=== PATIENT | female | born 1975 | race African-American/Black ===

== ENCOUNTER 2021-02-16 08:15 | Observation (INO) ==
[2021-02-16 09:25] LABS: Basophils # 0.1 10*3/uL (0.0-0.2); Basophils % 0.6 % (0.0-0.8); Eosinophils # 0.2 10*3/uL (0.0-0.87); Hemoglobin 12.3 GM/DL (12.0-16.0); Immature Granulocytes % 0.5 %; Immature Granulocytes Absolute 0.04 #; Lymphocytes # 1.4 10*3/uL (1.4-4.0); Lymphocytes % 17.2 % (21.3-54.2); Mean Corpuscular HGB Conc 30.8 GM/DL (32-36); Mean Corpuscular Volume 91.5 FL (87-102); Mean Platelet Volume 10.2 FL (9.6-12.0); Monocytes % 8.5 % (1.7-12.7); Neutrophils % 71.2 % (38.7-73.9); Platelet Count 330 T/CUMM (130-400); Red Blood Count 4.37 MC/CUMM (3.8-5.5); Red Cell Distribution Width 13.2 % (9.3-17.3); White Blood Count 8.4 T/CUMM (4-12)
[2021-02-16 09:38] LABS: Calcium 9.1 MG/DL (8.5-10.1); Osmolality,Calculated 278.3 MOS/KG (273-304); Potassium 3.8 MMOL/L (3.5-5.1)
[2021-02-16] MEDS ORDERED: HYDROmorphone 2 MG/1 ML VIAL ONE (10:29)
[2021-02-16] MEDS ORDERED: ONDANSETRON 4 MG/2 ML VIAL ONE ×2 (10:29→16:27)
[2021-02-16] MEDS ORDERED: HYDROmorphone 2 MG/1 ML VIAL IV STA (10:36)
[2021-02-16] MEDS ORDERED: ONDANSETRON 4 MG/2 ML VIAL IV STA (10:36)
[2021-02-16] MEDS ORDERED: metroNIDAZOLE INJ 500 MG/100 ML PREMIX IV ONE (10:40)
[2021-02-16] MEDS ORDERED: LEVOFLOXACIN INJ 750 MG/150 ML PREMIX IV ONE (10:40)
[2021-02-16] MEDS ORDERED: ACETAMINOPHEN 325 MG TABLET PO PRN (10:42)
[2021-02-16] MEDS ORDERED: BISACODYL 5 MG TABLET PO PRN (10:42)
[2021-02-16] MEDS ORDERED: KETOROLAC 15 MG/1 ML VIAL IV PRN (10:42)
[2021-02-16] MEDS ORDERED: ALBUTEROL/IPRATROPIUM 3 ML NEB RESP TX PRN (10:42)
[2021-02-16] MEDS: metroNIDAZOLE INJ 500 MG/100 ML PREMIX IV SCH ×2 (11:22→19:30)
[2021-02-16] MEDS: LACTATED RINGERS 1,000 ML IV SCH ×2 (11:23→20:31)
[2021-02-16] MEDS: LEVOFLOXACIN INJ 750 MG/150 ML PREMIX IV SCH (11:23)
[2021-02-16] MEDS ORDERED: ONDANSETRON 4 MG/2 ML VIAL IV PRN (12:55)
[2021-02-16] MEDS: HYDROmorphone 2 MG/1 ML VIAL IV PRN ×2 (13:08→16:19)
[2021-02-16] MEDS ORDERED: ONDANSETRON 4 MG/2 ML VIAL IV SCH (14:00)
[2021-02-16] MEDS ORDERED: propofoL 200 MG/20 ML VIAL IV ONE (16:27)
[2021-02-16] MEDS ORDERED: DEXAMETHASONE 4 MG/1 ML VIAL ONE (16:27)
[2021-02-16] MEDS ORDERED: LIDOCAINE 2% 5 ML VIAL ONE (16:27)
[2021-02-16] MEDS ORDERED: fentaNYL 100 MCG/2 ML VIAL ONE (16:27)
[2021-02-16] MEDS ORDERED: LACTATED RINGERS 1,000 ML IV ONE (16:27)
[2021-02-16] MEDS ORDERED: KETOROLAC 30 MG/1 ML VIAL ONE (16:27)
[2021-02-16] MEDS ORDERED: MIDAZOLAM 2 MG/2 ML VIAL ONE (16:28)
[2021-02-16] MEDS: KETOROLAC 30 MG/1 ML VIAL IV PRN (19:44)
[2021-02-17] MEDS: metroNIDAZOLE INJ 500 MG/100 ML PREMIX IV SCH ×2 (02:47→11:41)
[2021-02-17] MEDS: LACTATED RINGERS 1,000 ML IV SCH ×3 (05:47→22:15)
[2021-02-17] MEDS: PANTOPRAZOLE 40 MG TABLET PO SCH (09:25)
[2021-02-17] MEDS: KETOROLAC 30 MG/1 ML VIAL IV PRN ×3 (09:27→21:04)
[2021-02-17] MEDS: LEVOFLOXACIN INJ 750 MG/150 ML PREMIX IV SCH (12:25)
[2021-02-17] MEDS ORDERED: VANCOMYCIN INJ 1,250 MG in SODIUM CHLORIDE 0.9% 250 ML IV SCH (12:30)
[2021-02-17] MEDS ORDERED: VANCOMYCIN INJ 2,000 MG in SODIUM CHLORIDE 0.9% 500 ML IV ONE (14:00)
[2021-02-18] MEDS: KETOROLAC 30 MG/1 ML VIAL IV PRN ×3 (03:23→22:01)
[2021-02-18] MEDS: LACTATED RINGERS 1,000 ML IV SCH (03:25)
[2021-02-18 05:29] LABS: Basophils % 0.4 % (0.0-0.8); Eosinophils # 0.1 10*3/uL (0.0-0.87); Eosinophils % 0.7 % (0.00-10.9); Hemoglobin 10.7 GM/DL (12.0-16.0); Immature Granulocytes % 0.5 %; Immature Granulocytes Absolute 0.05 #; Lymphocytes # 2.8 10*3/uL (1.4-4.0); Lymphocytes % 27.2 % (21.3-54.2); Mean Corpuscular HGB Conc 30.6 GM/DL (32-36); Mean Corpuscular Volume 90.4 FL (87-102); Mean Platelet Volume 10.4 FL (9.6-12.0); Monocytes % 7.5 % (1.7-12.7); Neutrophils % 63.7 % (38.7-73.9); Platelet Count 308 T/CUMM (130-400); Red Blood Count 3.87 MC/CUMM (3.8-5.5); Red Cell Distribution Width 13.2 % (9.3-17.3); White Blood Count 10.5 T/CUMM (4-12)
[2021-02-18 05:54] LABS: Calcium 8.9 MG/DL (8.5-10.1); Osmolality,Calculated 278.4 MOS/KG (273-304)
[2021-02-18] MEDS: PANTOPRAZOLE 40 MG TABLET PO SCH (08:44)
[2021-02-19] MEDS: LACTATED RINGERS 1,000 ML IV SCH (02:18)
[2021-02-19] MEDS: KETOROLAC 30 MG/1 ML VIAL IV PRN (11:11)
[2021-02-19] MEDS: PANTOPRAZOLE 40 MG TABLET PO SCH (11:11)
[2021-02-19 12:14] VITALS: BP 163/86
== END 2021-02-19 13:45 | disposition home or self-care (01) ==
LOC: N.EDINP 08:15 → N.ED 08:15 → N.EDINP 12:30 → N.3E 12:42
PROVIDERS: ADMIT Student in an Organized Health Care Education/Training Program; ATTEND Student in an Organized Health Care Education/Training Program

== ENCOUNTER 2021-03-25 09:38 | Observation (INO) ==
[2021-03-25] MEDS ORDERED: ONDANSETRON 4 MG/2 ML VIAL ONE (11:17)
[2021-03-25] MEDS ORDERED: HYDROmorphone 2 MG/1 ML VIAL ONE (11:18)
[2021-03-25 11:26] LABS: Basophils % 0.5 % (0.0-0.8); Eosinophils # 0.2 10*3/uL (0.0-0.87); Eosinophils % 2.2 % (0.00-10.9); Hematocrit 43.5 VOL% (35.7-47.0); Hemoglobin 13.5 GM/DL (12.0-16.0); Immature Granulocytes % 0.3 %; Immature Granulocytes Absolute 0.02 #; Lymphocytes # 2.2 10*3/uL (1.4-4.0); Lymphocytes % 29.1 % (21.3-54.2); Mean Corpuscular Volume 88.2 FL (87-102); Mean Platelet Volume 10.4 FL (9.6-12.0); Monocytes % 9.2 % (1.7-12.7); Neutrophils % 58.7 % (38.7-73.9); Platelet Count 278 T/CUMM (130-400); Red Blood Count 4.93 MC/CUMM (3.8-5.5); Red Cell Distribution Width 13.2 % (9.3-17.3); White Blood Count 7.4 T/CUMM (4-12)
[2021-03-25] MEDS ORDERED: HYDROmorphone 2 MG/1 ML VIAL IV ONE (11:50)
[2021-03-25] MEDS ORDERED: ONDANSETRON 4 MG/2 ML VIAL IV ONE (11:51)
[2021-03-25 11:54] LABS: Calcium 9.7 MG/DL (8.5-10.1); Osmolality,Calculated 263.4 MOS/KG (273-304)
[2021-03-25] MEDS ORDERED: ACETAMINOPHEN 325 MG TABLET PO PRN (12:16)
[2021-03-25] MEDS ORDERED: ONDANSETRON 4 MG/2 ML VIAL IV PRN (12:16)
[2021-03-25] MEDS ORDERED: VANCOMYCIN INJ 2,000 MG in SODIUM CHLORIDE 0.9% 500 ML IV SCH (12:16)
[2021-03-25] MEDS: SODIUM CHLORIDE 0.45% 1,000 ML IV SCH (12:35)
[2021-03-25] MEDS: VANCOMYCIN INJ 1,750 MG in SODIUM CHLORIDE 0.9% 500 ML IV SCH (13:41)
[2021-03-25 14:57] LABS: Calcium 9.6 MG/DL (8.5-10.1); Osmolality,Calculated 278.4 MOS/KG (273-304); Potassium 3.7 MMOL/L (3.5-5.1)
[2021-03-25] MEDS ORDERED: TOBRAMYCIN INJ 80 MG in SODIUM CHLORIDE 0.9% 100 ML IV SCH (16:00)
[2021-03-25] MEDS: metroNIDAZOLE INJ 500 MG/100 ML PREMIX IV SCH ×2 (16:05→23:25)
[2021-03-25] MEDS: TOBRAMYCIN INJ 400 MG in SODIUM CHLORIDE 0.9% 100 ML IV SCH (18:15)
[2021-03-25] MEDS: HYDROmorphone 2 MG/1 ML VIAL IV PRN (19:39)
[2021-03-26] MEDS: SODIUM CHLORIDE 0.45% 1,000 ML IV SCH ×3 (01:41→21:39)
[2021-03-26] MEDS: VANCOMYCIN INJ 1,750 MG in SODIUM CHLORIDE 0.9% 500 ML IV SCH ×2 (01:42→14:30)
[2021-03-26] MEDS: metroNIDAZOLE INJ 500 MG/100 ML PREMIX IV SCH ×2 (08:46→17:04)
[2021-03-26] MEDS: PANTOPRAZOLE 40 MG TABLET PO SCH (08:46)
[2021-03-26] MEDS ORDERED: TISSUE ADHESIVE 1 EACH APPLICATOR TOP ONE (09:28)
[2021-03-26] MEDS ORDERED: BUPIVACAINE MPF 0.25% 30 ML VIAL ONE (09:28)
[2021-03-26] MEDS ORDERED: LIDOCAINE 1%/EPI INJ 20 ML VIAL ONE (09:28)
[2021-03-26] MEDS ORDERED: LACTATED RINGERS 1,000 ML IV SCH (10:30)
[2021-03-26] MEDS ORDERED: LIDOCAINE 2% 5 ML VIAL ONE (10:37)
[2021-03-26] MEDS ORDERED: fentaNYL 100 MCG/2 ML VIAL ONE (10:37)
[2021-03-26] MEDS ORDERED: propofoL 200 MG/20 ML VIAL IV ONE (10:37)
[2021-03-26] MEDS ORDERED: PHENYLEPHRINE 1 MG/10 ML SYRINGE IV ONE (10:37)
[2021-03-26] MEDS ORDERED: SUCCINYLCHOLINE 200 MG/10 ML VIAL ONE (10:37)
[2021-03-26] MEDS ORDERED: SEVOFLURANE 1 UNIT/15 MINUTE INH ONE ×2 (10:37→10:44)
[2021-03-26] MEDS ORDERED: ONDANSETRON 4 MG/2 ML VIAL ONE (10:37)
[2021-03-26] MEDS ORDERED: MIDAZOLAM 2 MG/2 ML VIAL ONE (10:38)
[2021-03-26] MEDS: HYDROmorphone 2 MG/1 ML VIAL IV PRN ×3 (11:09→15:40)
[2021-03-26] MEDS ORDERED: ONDANSETRON 4 MG/2 ML VIAL IV PRN (11:14)
[2021-03-26] MEDS: TOBRAMYCIN INJ 400 MG in SODIUM CHLORIDE 0.9% 100 ML IV SCH (18:08)
[2021-03-26] MEDS ORDERED: diphenhydrAMINE 50 MG/1 ML VIAL IV PRN (18:58)
[2021-03-27] MEDS: metroNIDAZOLE INJ 500 MG/100 ML PREMIX IV SCH ×3 (00:26→17:20)
[2021-03-27] MEDS: VANCOMYCIN INJ 1,750 MG in SODIUM CHLORIDE 0.9% 500 ML IV SCH ×2 (02:45→15:17)
[2021-03-27] MEDS: PANTOPRAZOLE 40 MG TABLET PO SCH (08:34)
[2021-03-27] MEDS: TOBRAMYCIN INJ 400 MG in SODIUM CHLORIDE 0.9% 100 ML IV SCH (18:30)
[2021-03-28] MEDS: metroNIDAZOLE INJ 500 MG/100 ML PREMIX IV SCH ×2 (01:49→09:30)
[2021-03-28] MEDS: VANCOMYCIN INJ 1,750 MG in SODIUM CHLORIDE 0.9% 500 ML IV SCH (03:23)
[2021-03-28 07:00] LABS: Calcium 8.8 MG/DL (8.5-10.1); Osmolality,Calculated 275.5 MOS/KG (273-304)
[2021-03-28] MEDS: PANTOPRAZOLE 40 MG TABLET PO SCH (09:30)
[2021-03-28 11:34] VITALS: BP 141/78
[2021-03-28] MEDS ORDERED: INFLUENZA VIRUS VACCINE 0.5 ML SYRINGE IM ONE (13:35)
== END 2021-03-28 14:43 | disposition home health service (06) ==
LOC: N.EDINP 09:38 → N.ED 09:38 → N.3E 11:24
PROVIDERS: ADMIT Student in an Organized Health Care Education/Training Program; ATTEND Student in an Organized Health Care Education/Training Program